=== PATIENT | female | born 1995 | race Native Hawaiian/Other Pacific Islander ===

== ENCOUNTER 2020-03-25 20:33 | Emergency (ER) | payer OTHER ==
[~2020-03-25] VITALS: Ht 170.2 cm; Wt 124.7 kg
[2020-03-25 20:40] VITALS: TEMP 98.7
[2020-03-25 21:50] VITALS: BP 132/78
== END 2020-03-25 21:51 | disposition home or self-care (01) ==
LOC: ED 20:33
DX: L23.9 Allergic contact dermatitis, unspecified cause (principal)
CPT/HCPCS: 96365; 96374; 99284; J2930

== ENCOUNTER 2020-12-06 07:45 | Outpatient (CLI) | payer OTHER | END 2020-12-06 23:00 | disposition home or self-care (01) | LOC: LAB 07:45 | PROVIDERS: ATTEND Family Medicine | DX: U07.1 COVID-19 (principal); R50.9 Fever, unspecified; R05 Cough; Z20.822 Contact with and (suspected) exposure to COVID-19 | CPT/HCPCS: 87635; G2023; U0003 ==

== ENCOUNTER 2021-03-28 20:50 | Emergency (ER) | payer OTHER ==
[~2021-03-28] VITALS: Ht 170.2 cm; Wt 113.4 kg
[2021-03-28 21:58] LABS: PLATELET COUNT 182 K/uL (152-353)
[2021-03-28 22:07] LABS: POTASSIUM 3.9 mmol/L (3.6-5.2)
[2021-03-28 23:56] VITALS: BP 126/81; TEMP 98.6
== END 2021-03-28 23:55 | disposition home or self-care (01) ==
LOC: ED 20:50
PROVIDERS: Emergency Medicine Emergency Medical Services
DX: K52.89 Other specified noninfective gastroenteritis and colitis (principal); Z20.822 Contact with and (suspected) exposure to COVID-19
CPT/HCPCS: 36415; 80053; 81000; 81025; 82150; 83690; 85027; 87502; 87635; 96360; 96375; 99284; J2405; J3490; U0003

== ENCOUNTER 2021-07-26 13:38 | Emergency (ER) | payer OTHER ==
[~2021-07-26] VITALS: Ht 170.2 cm; Wt 113.4 kg
[2021-07-26 13:45] VITALS: TEMP 99.1
[2021-07-26 14:35] VITALS: BP 112/70
== END 2021-07-26 14:37 | disposition home or self-care (01) ==
LOC: ED 13:38
DX: R22.0 Localized swelling, mass and lump, head (principal)
CPT/HCPCS: 96372; 99283; J1200; J2920

== ENCOUNTER 2022-04-16 10:42 | Emergency (ER) | payer OTHER ==
[~2022-04-16] VITALS: Ht 170.2 cm; Wt 113.4 kg
[2022-04-16 10:53] VITALS: TEMP 98.3
[2022-04-16 11:22] LABS: PLATELET COUNT 277 K/uL (152-353)
[2022-04-16 11:41] LABS: POTASSIUM 4.3 mmol/L (3.6-5.2)
[2022-04-16 13:00] VITALS: BP 133/79
== END 2022-04-16 13:05 | disposition home or self-care (01) ==
LOC: ED 10:42
PROVIDERS: Emergency Medicine
DX: K52.89 Other specified noninfective gastroenteritis and colitis (principal); E86.0 Dehydration
CPT/HCPCS: 80053; 81002; 83690; 85027; 96360; 96361; 99284; J2405